=== PATIENT | female | born 1945 | race Hispanic/Latino ===

== ENCOUNTER 2016-06-07 09:08 | Outpatient (CLI) | payer MEDICARE ==
--- NOTE | 2016-06-07 15:09 | Mammography Report ---
BILATERAL DIGITAL SCREENING MAMMOGRAM with CAD : 06/07/16 09:08:00 CLINICAL: Routine screening. COMPARISON:01/17/11 FINDINGS: The breasts are heterogeneously dense, which may obscure small masses. No mass, architectural distortion or suspicious calcifications. IMPRESSION: No mammographic evidence of malignancy. BI-RADS CATEGORY: 2 -- Benign RECOMMENDATION: Routine mammographic screening in one year. COMMENT: Patient follow-up letters are generated by our [employer] application.
== END 2016-06-07 09:09 | disposition home or self-care (01) ==
LOC: SPVWC 09:08
PROVIDERS: ATTEND Obstetrics & Gynecology
DX: Z12.31 Encounter for screening mammogram for malignant neoplasm of breast (principal)
CPT/HCPCS: 77067; G0202

== ENCOUNTER 2017-06-08 09:14 | Outpatient (CLI) | payer MEDICARE ==
--- NOTE | 2017-06-08 14:29 | Mammography Report ---
BILATERAL DIGITAL SCREENING MAMMOGRAM with CAD : 06/08/17 09:14:00 CLINICAL: Routine screening. COMPARISON:06/07/16 FINDINGS: The breasts are mostly fatty with heterogeneously dense bilateral retroareolar and outer fibroglandular densities. No mass, architectural distortion or suspicious calcifications. IMPRESSION: No mammographic evidence of malignancy. BI-RADS CATEGORY: 2 -- Benign RECOMMENDATION: Routine mammographic screening in one year. COMMENT: Patient follow-up letters are generated by our [employer] application.
== END 2017-06-08 09:15 | disposition home or self-care (01) ==
LOC: SPVWC 09:14
PROVIDERS: ATTEND Obstetrics & Gynecology
DX: Z12.31 Encounter for screening mammogram for malignant neoplasm of breast (principal)
CPT/HCPCS: 77067

== ENCOUNTER 2017-07-17 11:02 | Outpatient (CLI) | payer MEDICARE ==
--- NOTE | 2017-07-17 14:35 | Ultrasound Report ---
THYROID ULTRASOUND:07/17/17 11:02:00 CLINICAL: History of thyroid cancer status post thyroidectomy. TECHNIQUE: High resolution ultrasound examination with a 14.0 MHz linear probe performed. Scans included the thyroid bed and lymph node areas of the neck. FINDINGS: High-resolution ultrasound demonstrated no residual thyroid and no mass. A left level II jugular chain lymph node has benign morphology with central fat and measures 8 x 4 x 6 mm. No lymphadenopathy. IMPRESSION: Normal study status post total thyroidectomy.
== END 2017-07-17 11:03 | disposition home or self-care (01) ==
LOC: SPVWC 11:02
PROVIDERS: ATTEND Internal Medicine Endocrinology, Diabetes & Metabolism
DX: C73 Malignant neoplasm of thyroid gland (principal); Z90.89 Acquired absence of other organs
CPT/HCPCS: 76536

== ENCOUNTER 2018-06-10 10:06 | Outpatient (CLI) | payer MEDICARE ==
--- NOTE | 2018-06-10 14:27 | Mammography Report ---
BILATERAL DIGITAL SCREENING MAMMOGRAM with CAD: 06/10/18 10:06:00 CLINICAL: Routine screening. COMPARISON:06/08/17 FINDINGS: The breasts are heterogeneously dense, which may obscure small masses. A right asymmetry on MLO view requires additional imaging. There is questionable correlation on CC and exaggerated CC views.No architectural distortion or suspicious calcifications. Bilateral benign calcifications. The left breast is negative. IMPRESSION: Right asymmetry requiring further workup. BI-RADS CATEGORY: 0 -- Additional Imaging Evaluation Required RECOMMENDATION: Recall for right mediolateral and spot magnification MLO and exaggerated CC views and right breast ultrasound if needed. ACR BI-RADS MAMMOGRAPHIC CODES: 0 = Needs additional imaging evaluation; 1 = Negative; 2 = Benign; 3 = Probably benign; 4 = Suspicious; 5 = Malignant; 6 = Known biopsy-proven malignancy COMMENT: 1. Dense breast tissue, i.e., adenosis, fibrocystic changes, etc., may obscure an underlying neoplasm. 2. Approximately 10% of cancers are not detected with mammography. 3. A negative mammography report should not delay biopsy if a clinically suspicious mass is present. COMMENT: Patient follow-up letters are generated via our [employer] application.
== END 2018-06-10 10:07 | disposition home or self-care (01) ==
LOC: SPVWC 10:06
PROVIDERS: ATTEND Obstetrics & Gynecology
DX: Z12.31 Encounter for screening mammogram for malignant neoplasm of breast (principal)
CPT/HCPCS: 77067

== ENCOUNTER 2018-06-17 08:56 | Outpatient (CLI) | payer MEDICARE ==
--- NOTE | 2018-06-17 09:32 | Mammography Report ---
RIGHT DIGITAL DIAGNOSTIC MAMMOGRAM : 06/17/18 08:56:00 CLINICAL: Recalled for asymmetry. COMPARISON:06/10/18 screening FINDINGS: Additional mammographic views were performed and are negative.Benign calcifications. IMPRESSION: No mammographic evidence of malignancy. BI-RADS CATEGORY: 2 - - Benign RECOMMENDATION: Routine mammographic screening in one year. ACR BI-RADS MAMMOGRAPHIC CODES: 0 = Needs additional imaging evaluation; 1 = Negative; 2 = Benign; 3 = Probably benign; 4 = Suspicious; 5 = Malignant; 6 = Known biopsy-proven malignancy COMMENT: 1. Dense breast tissue, i.e., adenosis, fibrocystic changes, etc., may obscure an underlying neoplasm. 2. Approximately 10% of cancers are not detected with mammography. 3. A negative mammography report should not delay biopsy if a clinically suspicious mass is present. COMMENT: Patient follow-up letters are generated via our [employer] application.
== END 2018-06-17 08:57 | disposition home or self-care (01) ==
LOC: MAMMO 08:56
PROVIDERS: ATTEND Obstetrics & Gynecology
DX: R92.8 Other abnormal and inconclusive findings on diagnostic imaging of breast (principal)

== ENCOUNTER 2019-06-26 10:57 | Outpatient (CLI) | payer MEDICARE ==
--- NOTE | 2019-06-26 13:09 | Ultrasound Report ---
ULTRASOUND SOFT TISSUE HEAD AND NECK INDICATION: THTROID CANCER. COMPARISON: 07/17/2017 TECHNIQUE: High resolution ultrasound examination with a 14.0 MHz linear probe performed. Scans inclu de the thyroid bed and lymph node areas of the neck. FINDINGS: High-resolution ultrasound demonstrated no residual thyroid and no mass. No lymphadenopathy. IMPRESSION: 1. Normal study status post thyroidectomy.. Signer Name: Felton Briggs MD Signed: 06/26/2019 1:05 PM Workstation Name: [id number]
== END 2019-06-26 10:58 | disposition home or self-care (01) ==
LOC: SPVWC 10:57
PROVIDERS: ATTEND Internal Medicine Endocrinology, Diabetes & Metabolism
DX: C73 Malignant neoplasm of thyroid gland (principal)
CPT/HCPCS: 76536

== ENCOUNTER 2020-06-14 09:25 | Outpatient (CLI) | payer MEDICARE ==
--- NOTE | 2020-06-14 10:38 | Mammography Report ---
DIGITAL SCREENING MAMMOGRAM WITH CAD, 06/14/2020 CLINICAL INFORMATION / INDICATION: Routine screening mammography. TECHNIQUE: Digital bilateral 2D mammography was obtained in the craniocaudal and mediolateral obliqu e projections. This examination was interpreted with the benefit of Computer-Aided Detection analysis . COMPARISON: 06/07/2018, 06/10/2018, 06/08/2017 FINDINGS: Breast Density: There are scattered areas of fibroglandular density. No dominant mass, suspicious calcifications, or architectural distortion in either breast. Bilateral benign-appearing calcifications are unchanged. IMPRESSION: No mammographic evidence of malignancy. Follow up recommendation: Routine yearly BI-RADS Category 2: Benign. A "normal" or negative report should not discourage follow up or biopsy of a clinically significant f inding. A written summary of these findings will be mailed to the patient. The patient will be entered into a mammography reporting system which will generate a reminder letter for the patient's next appointmen t at the appropriate interval. The [employer] recommends yearly mammograms starting at age 40 and continuing as l arnaud as a woman is in good health. Breast MRI is recommended for women with an approximate 20-25% or greater lifetime risk of breast cancer, including women with a strong family history of breast or ova brissa cancer or who have been treated for Hodgkin's disease. Signer Name: Bobby Oglesby MD Signed: 06/14/2020 10:33 AM Workstation Name: [id number]
== END 2020-06-14 09:26 | disposition home or self-care (01) ==
LOC: SPVWC 09:25
PROVIDERS: ATTEND Obstetrics & Gynecology
DX: Z12.31 Encounter for screening mammogram for malignant neoplasm of breast (principal); N64.89 Other specified disorders of breast
CPT/HCPCS: 77067